=== PATIENT | male | born 1965 | race Caucasian/White ===

== ENCOUNTER 2016-05-12 21:36 | Emergency (ER) | payer MEDICARE, OTHER ==
[~2016-05-12] VITALS: Ht 182.9 cm; Wt 66.8 kg
[~2016-05-12 21:36] MED LIST: CLON1TAB PO; DILA8TAB4 PO; GABA100C4 PO; MELO15; MELO15TA2 PO; MORP60TA20 PO; SERT-132 PO; ZOFR4TAB3 PO
[2016-05-12 23:30] VITALS: BP 126/81; PULSE 81; TEMP 98.1; O2SAT 99
--- NOTE | 2016-05-12 23:55 | PD ---
HPI Chief Complaint: Numbness/Tingling Time Seen by Provider: 23:48 Travel History International Travel<30 days: No (unknown ) Contact w/Intl Traveler<30days: No (unknown) History of Present Illness HPI 50yo M with PMH of chronic back pain on dilaudid presents to the ED with c/o right elbow pain since waking up today. Pt states he does sleep on his side. Denies any trauma, weakness, numbness, fever, IVDA, chest pain, sob, n/v, abdominal pain. Pt states pain is sharp, worst with movement and radiates down forearm when he moves. PFSH Past Medical History Hx Anticoagulant Therapy: No Arthritis: No Asthma: No Autoimmune Disease: No Anxiety: Yes Depression: No Heart Rhythm Problems: No Cancer: No Cardiovascular Problems: No High Cholesterol: No Chemotherapy: No Chest Pain: No Congestive Heart Failure: No COPD: No Cerebrovascular Accident: No Diabetes: No Diminished Hearing: No Endocrine: No Gastrointestinal Disorders: No GERD: No Genitourinary: Yes Headaches: Yes Hepatitis: No Hiatal Hernia: No Immune Disorder: No Kidney Stones: No Musculoskeletal: Yes (CHRONIC BACK PAIN) Neurologic: Yes Psychiatric: No Reproductive: No Respiratory: No Migraines: No Radiation Therapy: No Renal Failure: No Seizures: No Sickle Cell Disease: No Sleep Apnea: No Thyroid Disease: No Ulcer: No Past Surgical History Abdominal Surgery: Yes (COLOSTOMY 06/2011, APPENDECTOMY) AICD: No Arteriovenous Shunt: No Body Medical Devices: HARDWARE IN BACK AND RT. LEG Cardiac Surgery: No Ear Surgery: No Endocrine Surgery: No Eye Surgery: No Genitourinary Surgery: No Gynecologic Surgery: No Hysterectomy: No Insulin Pump: No Joint Replacement: No Neurologic Surgery: Yes (L4-5, S1 FUSION) Oral Surgery: No Pacemaker: No Thoracic Surgery: No Other Surgery: Yes Social History Alcohol Use: Yes (SOCIALLY AT LEAST 4 BEERS A DAY) Tobacco Use: Yes (1PPD) Substance Use: No Allergies-Medications (Allergen,Severity, Reaction): Coded Allergies: No Known Allergies (Verified , 05/12/16) Reported Meds & Prescriptions Reported Meds & Active Scripts Active Reported Dilaudid (Hydromorphone HCl) 8 Mg Tab 4 Mg PO Q6HR PRN Gabapentin 100 Mg Cap 100 Mg PO BID Review of Systems Except as stated in HPI: all other systems reviewed are Neg Physical Exam Narrative GENERAL: 50yo M in mild distress. SKIN: Warm and dry. HEAD: Atraumatic. Normocephalic. CARDIOVASCULAR: Regular rate and rhythm. No murmur appreciated. RESPIRATORY: No accessory muscle use. Clear to auscultation. Breath sounds equal bilaterally. GASTROINTESTINAL: Abdomen soft, non-tender, nondistended. Hepatic and splenic margins not palpable. MUSCULOSKELETAL: RUE: Right elbow: No edema, erythema or open wound. +TTP. Sensation intact. Radial pulse 2+. No ttp right shoulder. NEUROLOGICAL: Awake and alert. No obvious cranial nerve deficits. Motor grossly within normal limits. Normal speech. PSYCHIATRIC: Appropriate mood and affect; insight and judgment normal. Data Data Last Documented VS Vital Signs Date Time Temp Pulse Resp B/P Pulse Ox O2 Delivery O2 Flow Rate FiO2 05/12/16 23:45 Room Air 05/12/16 23:30 98.1 81 126/81 99 Orders Elbow, Limited (Ap&Lat) (05/12/16 ) Ketorolac Inj (Toradol Inj) (05/13/16 00:00) Diazepam (Valium) (05/13/16 00:00) MDM Medical Decision Making Medical Screen Exam Complete: Yes Emergency Medical Condition: Yes Differential Diagnosis Musculoskeletal pain vs. neuropathy vs. fracture vs. contusion Narrative Course 50yo M with right elbow pain for 1 day. No fever, or signs of infection. No trauma. Xray right elbow unremarkable. Pt given valium and toradol which relieved the pain. Return precautions given. VS stable. Diagnosis Primary Impression: Right elbow pain Patient Instructions: General Instructions Departure Forms: Tests/Procedures Additional Instructions: Please follow up with your PMD in 3-7 days. Return to the ED if symptoms worsen. Med/Other Pt SpecificInfo: Prescription(s) given Scripts Tramadol 50 Mg Tab50 Mg PO Q6H PRN (PAIN) #7 TAB Ref 0 Prov:Sharon Demarco DO 05/13/16 Disposition: 01 DISCHARGE HOME Condition: Stable Sharon Demarco DO May 12, 2016 23:55
[2016-05-13] MEDS ORDERED: DIAZEPAM 5 MG TAB PO ONE
[2016-05-13] MEDS ORDERED: KETOROLAC TROMETHAMINE 60 MG/2 ML (IM) VIAL IM ONE
[2016-05-13] MEDS ORDERED: DILA8TAB4 PO (00:04)
[2016-05-13] MEDS ORDERED: GABA100C4 PO (00:04)
--- NOTE | 2016-05-13 02:04 | RADHPO ---
EXAM DATE/TIME: 05/13/2016 00:15 [facility] COMPARISON: No previous studies available for comparison. INDICATIONS : Right elbow pain for 24 hours with no known trauma MEDICAL HISTORY : None. SURGICAL HISTORY : None. ENCOUNTER: Initial ACUITY: 1 day PAIN SCORE: 10/10 LOCATION: Right posterior elbow FINDINGS: Two view examination of the right elbow demonstrates no soft tissue swelling, joint effusion, fractur e or dislocation. Bony mineralization is normal. Spurring of the posterior calcaneus. CONCLUSION: No acute fracture. Benson Hopkins MD on May 13, 2016 at 2:02 Board Certified Radiologist. This report was verified electronically.
[2016-05-13] MEDS ORDERED: TRAM50TA PO (02:16)
[2016-05-13 02:18] VITALS: BP 142/71; PULSE 82; RESP 16; O2SAT 100
== END 2016-05-13 02:33 | disposition home or self-care (01) ==
LOC: PHED 21:36
DX: M25.521 Pain in right elbow (principal)
CPT/HCPCS: 73070; 96372; 99283; J1885